=== PATIENT | male | born 1955 | race Caucasian/White ===

== ENCOUNTER 2018-06-09 06:33 | Day surgery (SDC) | payer BC ==
[2018-06-07 09:24] VITALS: BMI 36.6
[~2018-06-09 06:33] MED LIST: LACTATED RINGERS 1,000 ML IV SCH
[2018-06-09 06:57] VITALS: TEMP 98
[2018-06-09 07:04] LABS: Glucose,Whole Blood 155 mg/dL (75-99)
[2018-06-09] MEDS ORDERED: LIDOCAINE 1% INJ 10MG/ML (20 ML MDV) ONE (07:42)
[2018-06-09] MEDS ORDERED: PROPOFOL 10 MG/ML 20 ML VIAL IV ONE (07:42)
--- NOTE | 2018-06-09 07:48 | P.GSHP ---
History of Present Illness H&P Date: 06/09/18 Chief Complaint: Screen colonoscopy This is a 60-year-old male referred from Dr. Larson. Patient presents today for screening colonoscopy. His last colonoscopy over 10 years ago. Past Medical History Past Medical History: Cancer, Diabetes Mellitus, Hyperlipidemia, Hypertension Additional Past Medical History / Comment(s): CLL-CHRONIC LYMPHOCYTIC LEUKEMIA History of Any Multi-Drug Resistant Organisms: None Reported Past Surgical History: No Surgical Hx Reported Additional Past Surgical History / Comment(s): COLONOSCOPY Past Anesthesia/Blood Transfusion Reactions: No Reported Reaction Smoking Status: Never smoker - Past Family History Father Family Medical History: Cancer Medications and Allergies Home Medications Medication Instructions Recorded Confirmed Type Simvastatin [Zocor] 20 mg PO HS 07/27/14 06/09/18 History metFORMIN HCL [metFORMIN HCL ER] 500 mg PO TID 07/27/14 06/09/18 History Amoxicillin 500 mg PO TID 06/07/18 06/09/18 History Aspirin EC [Ecotrin Low Dose] 81 mg PO DAILY 06/07/18 06/09/18 History Multivitamin [Men's Multi-Vitamin] 1 each PO DAILY 06/07/18 06/09/18 History amLODIPine BESYLATE/BENAZEPRIL 1 tab PO DAILY 06/07/18 06/09/18 History [amLODIPine BESYLATE/BENAZEPRIL 5-20 mg] Allergies Allergy/AdvReac Type Severity Reaction Status Date / Time No Known Allergies Allergy Verified 06/07/18 09:17 Surgical - Exam Vital Signs Temp Pulse Resp BP Pulse Ox 98.0 F 66 20 157/80 99 06/09/18 06:55 06/09/18 06:55 06/09/18 06:55 06/09/18 06:55 06/09/18 06:55 - General well developed, no distress - Eyes PERRL - ENT normal pinna - Neck no masses - Respiratory normal expansion - Cardiovascular Rhythm: regular - Abdomen Abdomen: soft, non tender Results - Labs Abnormal Lab Results - Last 24 Hours (Table) 06/09/18 Range/Units 07:00 POC Glucose (mg/dL) 155 H (75-99) mg/dL Assessment and Plan Assessment: We'll perform screening colonoscopy.
--- NOTE | 2018-06-09 08:10 | P.OP ---
Date of Procedure: 06/09/18 Preoperative Diagnosis: Screening colonoscopy Postoperative Diagnosis: Diverticulosis Procedure(s) Performed: Colonoscopy Anesthesia: MAC Surgeon: Leonel Jackson Pathology: none sent Condition: stable Disposition: PACU Description of Procedure: Patient's placed on the endoscopy table in the lateral position. He received IV sedation. Digital rectal exam was performed which revealed no abnormalities. The flexible colonoscope was then placed patient anus passed throughout the entire colon. The ileocecal valve was visualized. Cecum, ascending and transverse colon appeared normal. In the descending; there is mild diverticular changes. Scope was then brought back the rectum and this appeared normal. Scope was withdrawn for patient.
[2018-06-09 08:20] VITALS: BP 144/76; PULSE 54; RESP 16
== END 2018-06-09 08:36 | disposition home or self-care (01) ==
LOC: ORWHC2ENDO 06:33
PROVIDERS: ATTEND Surgery
DX: Z12.11 Encounter for screening for malignant neoplasm of colon (principal); K57.30 Diverticulosis of large intestine without perforation or abscess without bleeding; I10 Essential (primary) hypertension; E78.5 Hyperlipidemia, unspecified; E11.9 Type 2 diabetes mellitus without complications; Z79.84 Long term (current) use of oral hypoglycemic drugs; Z85.6 Personal history of leukemia; Z79.2 Long term (current) use of antibiotics; Z79.82 Long term (current) use of aspirin; Z79.899 Other long term (current) drug therapy
CPT/HCPCS: J2001; J2704; G0121; 45378

== ENCOUNTER → 2020-02-13 | Outpatient (CLI) | payer BC ==
[2020-02-13 23:31] LABS: African American GFR (CKD) 109.4 (60.0-200.0); Albumin 4.4 g/dL (3.80-4.90); Albumin/Globulin Ratio 1.76 (1.60-3.17); Anion Gap 13.7 mmol/L (4.00-12.00); BUN/Creat Ratio 23.75 Ratio (12.00-20.00); Calcium 9.4 mg/dL (8.7-10.3); Carbon Dioxide 24.3 mmol/L (21.6-31.8); Chol/HDL Ratio 3.04; Globulin 2.5 g/dL (1.6-3.3); LDL Cholesterol,Calculated 83.4 mg/dL (0.0-131.0); Non-African American GFR(CKD) 94.4 (60.0-200.0); Potassium 3.9 mmol/L (3.5-5.5); Total Bilirubin 0.7 mg/dL (0.3-1.2); Total Protein 6.9 g/dL (6.2-8.2); VLDL Calculation 10.6 mg/dL (5.00-40.00)
[2020-02-14 01:13] LABS: Hemoglobin A1C 7.1 % (4.0-6.0)
== END | disposition home or self-care (01) ==
LOC: LABWHC1 14:49
PROVIDERS: ATTEND Internal Medicine Endocrinology, Diabetes & Metabolism
DX: E11.65 Type 2 diabetes mellitus with hyperglycemia (principal)
CPT/HCPCS: 36415; 80053; 80061; 83036; 84443

== ENCOUNTER → 2020-07-24 | Outpatient (CLI) | payer BC ==
[2020-07-24 23:45] LABS: Hemoglobin A1C 5.7 % (4.0-6.0)
[2020-07-25 00:35] LABS: African American GFR (CKD) 104.2 (60.0-200.0); Albumin 4.5 g/dL (3.80-4.90); Albumin/Globulin Ratio 1.96 (1.60-3.17); Anion Gap 11.6 mmol/L (4.00-12.00); BUN/Creat Ratio 24.44 Ratio (12.00-20.00); Calcium 9.8 mg/dL (8.7-10.3); Carbon Dioxide 23.4 mmol/L (21.6-31.8); Chol/HDL Ratio 3.06; Globulin 2.3 g/dL (1.6-3.3); Non-African American GFR(CKD) 89.9 (60.0-200.0); Potassium 4.5 mmol/L (3.5-5.5); Total Protein 6.8 g/dL (6.2-8.2)
[2020-07-25 01:15] LABS: Microalbumin Creatinine Ratio <30 mg/g Creat (0-30)
== END | disposition home or self-care (01) ==
LOC: LABWHC1 14:52
PROVIDERS: ATTEND Internal Medicine Endocrinology, Diabetes & Metabolism
DX: E78.2 Mixed hyperlipidemia (principal); E11.65 Type 2 diabetes mellitus with hyperglycemia
CPT/HCPCS: 36415; 80053; 80061; 82043; 82570; 83036; 84443

== ENCOUNTER 2020-10-26 08:25 | Emergency (ER) | payer BC ==
[2020-10-26 08:32] VITALS: BP 145/84; PULSE 86; RESP 16; TEMP 98
[2020-10-26] MEDS ORDERED: PROPARACAINE 0.5% OPHTH DROPS 15 ML BTL BOTH EYES STA (08:45)
[2020-10-26] MEDS ORDERED: FLUORESCEIN STRIPS 1 MG STRIP BOTH EYES ONE (09:20)
[2020-10-26] MEDS ORDERED: AMOXIC-POT CLAV 875MG STARTER PACK 2 TAB BTL PO STA (09:42)
--- NOTE | 2020-10-26 09:42 | ED ---
General Adult HPI - General Chief complaint: Eye Problems Stated complaint: Eye Swelling Time Seen by Provider: 10/26/20 08:33 Source: patient, RN notes reviewed Mode of arrival: ambulatory Limitations: no limitations - History of Present Illness Initial comments: 65-year-old male presents to the emergency department for bilateral eye swelling. Patient states this started 2 days ago. States they are somewhat itchy as well. He denies any visual changes. Denies any purulent or serous drainage from the eyes. Denies fevers or chills. Denies headaches. Denies congestion or runny nose. Patient does not take lisinopril. He does not have any swelling of the lips tongue or throat. No shortness of breath. He did take Benadryl once over did not seem to help much. Patient has no other complaints at this time including shortness of breath, chest pain, abdominal pain, nausea or vomiting, headache, or visual changes. - Related Data Home Medications Medication Instructions Recorded Confirmed Simvastatin [Zocor] 20 mg PO HS 07/27/14 06/09/18 metFORMIN HCL [metFORMIN HCL ER] 500 mg PO TID 07/27/14 06/09/18 Amoxicillin 500 mg PO TID 06/07/18 06/09/18 Aspirin EC [Ecotrin Low Dose] 81 mg PO DAILY 06/07/18 06/09/18 Multivitamin [Men's Multi-Vitamin] 1 each PO DAILY 06/07/18 06/09/18 amLODIPine BESYLATE/BENAZEPRIL 1 tab PO DAILY 06/07/18 06/09/18 [amLODIPine BESYLATE/BENAZEPRIL 5-20 mg] Previous Rx's Medication Instructions Recorded Amoxicillin/Potassium Clav 1 tab PO Q12HR #20 tab 10/26/20 [Augmentin 875-125 Tablet] Loratadine [Claritin] 10 mg PO DAILY #20 tab 10/26/20 Olopatadine HCl [Pataday] 1 drop BOTH EYES DAILY 5 Days #5 ml 10/26/20 Allergies Allergy/AdvReac Type Severity Reaction Status Date / Time No Known Allergies Allergy Verified 10/26/20 08:27 Review of Systems ROS Statement: Those systems with pertinent positive or pertinent negative responses have been documented in the HPI. ROS Other: All systems not noted in ROS Statement are negative. Past Medical History Past Medical History: Cancer, Diabetes Mellitus, Hyperlipidemia, Hypertension Additional Past Medical History / Comment(s): CLL-CHRONIC LYMPHOCYTIC LEUKEMIA History of Any Multi-Drug Resistant Organisms: None Reported Past Surgical History: No Surgical Hx Reported Additional Past Surgical History / Comment(s): COLONOSCOPY Past Anesthesia/Blood Transfusion Reactions: No Reported Reaction Past Psychological History: No Psychological Hx Reported Smoking Status: Never smoker Past Alcohol Use History: Occasional Past Drug Use History: None Reported - Past Family History Father Family Medical History: Cancer General Exam Limitations: no limitations General appearance: alert, in no apparent distress Head exam: Present: atraumatic, normocephalic, normal inspection Eye exam: Present: normal appearance, PERRL, EOMI (No pain with extraocular motion), conjunctival injection (Minimal conjunctival injection), periorbital swelling (Patient has minimal nonindurated bilateral periorbital edema with minimal erythema/). Absent: scleral icterus, periorbital tenderness ENT exam: Present: normal exam, mucous membranes moist Neck exam: Present: normal inspection, full ROM. Absent: tenderness, meningismus, lymphadenopathy Respiratory exam: Present: normal lung sounds bilaterally. Absent: respiratory distress, wheezes, rales, rhonchi, stridor Cardiovascular Exam: Present: regular rate, normal rhythm, normal heart sounds. Absent: systolic murmur, diastolic murmur, rubs, gallop, clicks GI/Abdominal exam: Present: soft, normal bowel sounds. Absent: distended, tenderness, guarding, rebound, rigid Course Vital Signs 10/26/20 08:29 Temperature 98.0 F Pulse Rate 86 Respiratory 16 Rate Blood Pressure 145/84 O2 Sat by Pulse 96 Oximetry Medical Decision Making - Medical Decision Making Vitals are stable. Patient is well-appearing. He does have minimal bilateral periorbital edema with erythema, non-indurated, not warm to touch. No swelling of the lips tongue or throat. Minimal conjunctival erythema. No headache, fever. I did stain patient's eyes with fluorescein and visualized with the Wood's lamp. There is no evidence of abrasion or foreign body. No dendritic lesions. Patient's symptoms are consistent with ALLERGIC conjunctivitis. I did start patient on Pataday drops as well as Claritin. However I will also give patient Augmentin to cover for a preseptal cellulitis. No evidence for an orbital cellulitis given no fever, no pain with extraocular motions. Patient will follow-up with his eye doctor on Wednesday. He will return here for any worsening symptoms. Disposition Clinical Impression: Periorbital edema Disposition: HOME SELF-CARE Condition: Good Instructions (If sedation given, give patient instructions): Periorbital Cellul itis in Adults (ED) Additional Instructions: Please take antibiotic as directed to cover for any possible infectious cause. However as discussed by do think this is more of an ALLERGIC cause. Please take Claritin or Benadryl as directed. Use antihistamine eyedrops. Follow-up with your eye doctor on Wednesday if symptoms are not improving. Otherwise return to the emergency room for any worsening symptoms or visual changes. Prescriptions: Amoxicillin/Potassium Clav [Augmentin 875-125 Tablet] 1 tab PO Q12HR #20 tab Loratadine [Claritin] 10 mg PO DAILY #20 tab Olopatadine HCl [Pataday] 1 drop BOTH EYES DAILY 5 Days #5 ml Is patient prescribed a controlled substance at d/c from ED?: No Referrals: Erik Larson DO [Primary Care Provider] - 1-2 days Time of Disposition: 09:37
== END 2020-10-26 09:54 | disposition home or self-care (01) ==
LOC: EC 08:25
DX: H05.223 Edema of bilateral orbit (principal); E11.9 Type 2 diabetes mellitus without complications; I10 Essential (primary) hypertension; E78.5 Hyperlipidemia, unspecified; Z79.82 Long term (current) use of aspirin; Z79.84 Long term (current) use of oral hypoglycemic drugs; Z79.899 Other long term (current) drug therapy; Z85.6 Personal history of leukemia
CPT/HCPCS: 99283

== ENCOUNTER 2020-10-28 14:46 | Emergency (ER) | payer BC ==
[2020-10-28 14:57] VITALS: BP 125/77; PULSE 82; RESP 18; TEMP 97.8
[2020-10-28] MEDS ORDERED: FAMOTIDINE 20 MG TAB PO STA (15:15)
--- NOTE | 2020-10-28 15:27 | ED ---
General Adult HPI - General Chief complaint: Allergic Reaction Stated complaint: Allergic Reaction- Rash Time Seen by Provider: 10/28/20 15:03 Source: patient, RN notes reviewed Mode of arrival: ambulatory Limitations: no limitations - History of Present Illness Initial comments: 65-year-old male with a past medical history of CLL, diabetes mellitus, hy perlipidemia, hypertension presents to the emergency room for a chief complaint of rash. Patient reports that he was started on Augmentin a few days ago for possible infection around his eyes. Patient reports he has been taking Claritin and Augmentin and it has improved. However patient developed a rash today. States it is diffusely over his arms and abdomen. He denies any shortness of breath or swelling of the lips tongue or throat.Patient has no other complaints at this time including shortness of breath, chest pain, abdominal pain, nausea or vomiting, headache, or visual changes. - Related Data Home Medications Medication Instructions Recorded Confirmed Simvastatin [Zocor] 20 mg PO HS 07/27/14 06/09/18 metFORMIN HCL [metFORMIN HCL ER] 500 mg PO TID 07/27/14 06/09/18 Amoxicillin 500 mg PO TID 06/07/18 06/09/18 Aspirin EC [Ecotrin Low Dose] 81 mg PO DAILY 06/07/18 06/09/18 Multivitamin [Men's Multi-Vitamin] 1 each PO DAILY 06/07/18 06/09/18 amLODIPine BESYLATE/BENAZEPRIL 1 tab PO DAILY 06/07/18 06/09/18 [amLODIPine BESYLATE/BENAZEPRIL 5-20 mg] Previous Rx's Medication Instructions Recorded Amoxicillin/Potassium Clav 1 tab PO Q12HR #20 tab 10/26/20 [Augmentin 875-125 Tablet] Loratadine [Claritin] 10 mg PO DAILY #20 tab 10/26/20 Olopatadine HCl [Pataday] 1 drop BOTH EYES DAILY 5 Days #5 ml 10/26/20 Famotidine [Pepcid] 20 mg PO DAILY #15 tablet 10/28/20 hydrOXYzine HCL [Atarax] 25 mg PO QID #20 tab 10/28/20 Allergies Allergy/AdvReac Type Severity Reaction Status Date / Time amoxicillin [From Augmentin] Allergy Rash/Hives Verified 10/28/20 14:56 clavulanic acid Allergy Rash/Hives Verified 10/28/20 14:56 [From Augmentin] Review of Systems ROS Statement: Those systems with pertinent positive or pertinent negative responses have been documented in the HPI. ROS Other: All systems not noted in ROS Statement are negative. Past Medical History Past Medical History: Cancer, Diabetes Mellitus, Hyperlipidemia, Hypertension Additional Past Medical History / Comment(s): CLL-CHRONIC LYMPHOCYTIC LEUKEMIA History of Any Multi-Drug Resistant Organisms: None Reported Past Surgical History: No Surgical Hx Reported Additional Past Surgical History / Comment(s): COLONOSCOPY Past Anesthesia/Blood Transfusion Reactions: No Reported Reaction Past Psychological History: No Psychological Hx Reported Smoking Status: Never smoker Past Alcohol Use History: Occasional Past Drug Use History: None Reported - Past Family History Father Family Medical History: Cancer General Exam Limitations: no limitations General appearance: alert, in no apparent distress Head exam: Present: atraumatic, normocephalic, normal inspection Eye exam: Present: normal appearance, PERRL, EOMI. Absent: scleral icterus, conjunctival injection, periorbital swelling ENT exam: Present: normal exam, mucous membranes moist Neck exam: Present: normal inspection. Absent: tenderness, meningismus, lymphadenopathy Respiratory exam: Present: normal lung sounds bilaterally. Absent: respiratory distress, wheezes, rales, rhonchi, stridor Cardiovascular Exam: Present: regular rate, normal rhythm, normal heart sounds. Absent: systolic murmur, diastolic murmur, rubs, gallop, clicks GI/Abdominal exam: Present: soft, normal bowel sounds. Absent: distended, tenderness, guarding, rebound, rigid Skin exam: Present: rash (Patient has erythematous raised rash on extremities and torso. Negative Nikolsky sign. Consistent with hives.) Course Vital Signs 10/28/20 14:52 Temperature 97.8 F Pulse Rate 82 Respiratory 18 Rate Blood Pressure 125/77 O2 Sat by Pulse 98 Oximetry Medical Decision Making - Medical Decision Making Patient presents with allergic rash presumably to augmentin. This was discontinued. Patient was evaluated by Dr saenz, who is in agreement that erythema and edema of eyelids is secondary to ALLERGIC nature and not consistent with preseptal cellulitis. Patient was not started on any additional antibiotics. He reports his symptoms have been improving. Patient will be started on Atarax for antihistamine and itching relief as well as Pepcid. He does not want steroids because he was told by his oncologist that he should not have these with his CLL. Disposition Clinical Impression: Rash, Allergic reaction Disposition: HOME SELF-CARE Condition: Good Instructions (If sedation given, give patient instructions): General Allergic Reaction (ED) Additional Instructions: Please stop the Augmentin. Please take Pepcid as directed. Take Atarax every 6 hours. You can take this instead of the Benadryl. Follow-up with your doctor in one to 2 days. Return to the emergency room for any worsening symptoms. Prescriptions: hydrOXYzine HCL [Atarax] 25 mg PO QID #20 tab Famotidine [Pepcid] 20 mg PO DAILY #15 tablet Is patient prescribed a controlled substance at d/c from ED?: No Referrals: Erik Larson DO [Primary Care Provider] - 1-2 days Time of Disposition: 15:48
== END 2020-10-28 16:07 | disposition home or self-care (01) ==
LOC: EC 14:46
DX: R21 Rash and other nonspecific skin eruption (principal); T36.0X5A Adverse effect of penicillins, initial encounter; T36.1X5A Adverse effect of cephalosporins and other beta-lactam antibiotics, initial encounter; E11.9 Type 2 diabetes mellitus without complications; I10 Essential (primary) hypertension; E78.5 Hyperlipidemia, unspecified; Z79.84 Long term (current) use of oral hypoglycemic drugs; Z79.899 Other long term (current) drug therapy; Z85.6 Personal history of leukemia; Z88.0 Allergy status to penicillin; Z88.1 Allergy status to other antibiotic agents
CPT/HCPCS: 99282

== ENCOUNTER → 2022-04-15 | Outpatient (CLI) | payer BC ==
--- NOTE | 2022-04-15 14:21 | CA ---
Exercise Stress Test Report Name: uHdson Coffey Exam Date: 04/15/2022 11:15 Exam Location: [facility] Ht (in): 70 Wt (lb): 220 BSA: 2.17 Ordering Phys: Erik Beasley DO Referring Phys: BEASLEY Technologist: Moses Aguilar Age: 66 Gender: M : 1955 Procedure CPT: Indications: R55 Syncope ICD-10 Codes: Patient History: HTN, DIABETIC, ELEVATED CHOLESTEROL, FAMILY HX OF HEART DISEASE, Medications: METFORMIN,,,,,, AMLODIPINE,,,,,, SIMVASTATIN,,,,,, ASA 81 mg,,,,,, FARXIGA,,,,, Meds past 24 hrs: Pretest Chest Pain: STRESS TEST Mayank Protocol Exercise Duration (min:sec): 11:[address] Depressions (mm): Angina Score: Lord Score: Resting HR (bpm): 77 Peak HR (bpm): 144 Resting BP (mmHg): 136 / 85 Peak BP (mmHg): 204 / 66 MPHR: 154 Target HR: 131 % MPHR: 94 METS: 12.1 Total Dose: Peak Dose: Atropine: Double Product: 07454 BP Response: Stress Termination: Stress Symptoms: Stress Summary: ECG ANALYSIS Resting ECG: Stress ECG: CONCLUSIONS Excellent exercise tolerance Normal EKG and response to exercise Dr. Josesito Kirk MD (Electronically Signed) Final Date: 15 Apr 2022 14:19
--- NOTE | 2022-04-15 17:11 | US ---
EXAMINATION TYPE: US carotid duplex BILAT DATE OF EXAM: 04/15/2022 COMPARISON: NONE CLINICAL HISTORY: R55 SYNCOPE. EXAM MEASUREMENTS: RIGHT: Peak Systolic Velocity (PSV) cm/sec ----- Right CCA: 85.5 ----- Right ICA: 92.5 ----- Right ECA: 130.0 ICA/CCA ratio: 1.1 RIGHT: End Diastole cm/sec ----- Right CCA: 18.5 ----- Right ICA: 29.6 ----- Right ECA: 19.8 LEFT: Peak Systolic Velocity (PSV) cm/sec ----- Left CCA: 91.2 ----- Left ICA: 80.7 ----- Left ECA: 113.0 ICA/CCA ratio: 0.9 LEFT: End Diastole cm/sec ----- Left CCA: 23.8 ----- Left ICA: 30.0 ----- Left ECA: 16.0 VERTEBRALS (direction of flow): Right Vertebral: Antegrade Left Vertebral: Antegrade Rhythm: Normal No significant stenosis mild atheromatous plaquing is present. IMPRESSION: No significant flow-limiting stenosis by velocity measurement. Criteria for Assigning % of Stenosis / Diameter reduction (Estimation based on the indirect measurements of the internal carotid artery velocities (ICA PSV). 1. Normal (no stenosis)=ICA PSV < 125 cm/s: ratio < 2.0: ICA EDV<40 cm/s. 2. Less than 50% stenosis=ICA PSV < 125 cm/s: ratio < 2.0: ICA EDV<40 cm/s. 3. 50 to 69% stenosis=ICA PSV of 125 to 230 cm/s: ration 2.0 ? 4.0: ICA EDV 40-100 cm/s. 4. Greater than 70% stenosis to near occlusion= ICA PSV > 230 cm/s: ratio > 4.0: ICA EDV > 100 cm/s. 5. Near occlusion= ICA PSV velocities may be low or undetectable: variable ratio and ICA EDV. 6. Total occlusion=unable to detect flow.
== END | disposition home or self-care (01) ==
LOC: RADUSWWP 09:37
PROVIDERS: ATTEND Family Medicine
DX: R55 Syncope and collapse (principal)
CPT/HCPCS: 93017; 93880

== ENCOUNTER → 2023-06-03 | Outpatient (CLI) | payer MEDICARE ==
[2023-06-03 12:51] LABS: Appearance,Urine Clear (Clear); Bilirubin,Urine Negative (Negative); Blood,Urine Negative (Negative); Color,Urine Yellow; Glucose,Urine (UA) 4+ (Negative); Ketones,Urine Trace (Negative); Leukocyte Esterase,Urine Negative (Negative); Nitrite,Urine Negative (Negative); PH, Urine 5.5 (5.0-8.0); Protein,Urine Negative (Negative); Specific Gravity,Urine 1.033 (1.001-1.035); Urobilinogen,Urine <2.0 mg/dL (<2.0)
[2023-06-03 16:32] LABS: BUN/Creat Ratio 36.12 Ratio (12.00-20.00); Blood Urea Nitrogen 28.9 mg/dL (9.0-27.0); Chloride 105 mmol/L (96-109); Glucose 128 mg/dL (70-110); Potassium 4.5 mmol/L (3.5-5.5); Sodium 140 mmol/L (135-145)
[2023-06-03 16:33] LABS: Calcium 9.8 mg/dL (8.7-10.3); Carbon Dioxide 25.3 mmol/L (21.6-31.8)
[2023-06-03 17:30] LABS: Basophils # (M) 0 X 10*3/uL (0.00-0.10); Eosinophils # (M) 0.82 X 10*3/uL (0.04-0.35); HCT 47.6 % (39.6-50.0); HGB 15.5 d/dL (12.0-15.0); Lymphocytes # (M) 32.51 X 10*3/uL (0.90-5.00); MCHC 32.6 d/dL (32.0-37.0); MCV 95.2 FL (80.0-97.0); Mean Platelet Volume 12.3 FL (9.5-12.2); Monocytes # (M) 1.65 X 10*3/uL (0.20-1.00); NRBC Per 100 WBC 0 X 10*3/uL (0.00-0.01); Neutrophils % (M) 15 %; Platelet Count 288 X 10*3/uL (140-440); RBC Morphology Normal (Normal); Smudge Cells Present; WBC 41.15 X 10*3/uL (4.50-10.00)
== END | disposition home or self-care (01) ==
LOC: LABPAT 11:22
PROVIDERS: ATTEND Urology
DX: Z01.812 Encounter for preprocedural laboratory examination (principal); N53.9 Unspecified male sexual dysfunction
CPT/HCPCS: 80048; 81003; 85025; 87086

== ENCOUNTER 2023-06-10 05:59 | Day surgery (SDC) | payer MEDICARE ==
[2023-06-04 13:47] VITALS: BMI 33.0
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
[~2023-06-10 05:59] MED LIST changes: +GENTAMICIN 130 MG in SODIUM CHLORIDE 0.9% 100 ML IVPB PRN; -LACTATED RINGERS 1,000 ML IV SCH; +Pre Op ABX Message 1 EACH MISC MISCELLANE ONE
[2023-06-10] MEDS ORDERED: ONDANSETRON 4 MG/2 ML VIAL IVP ONE (06:02)
[2023-06-10] MEDS ORDERED: LACTATED RINGERS 1,000 ML IV SCH (06:02)
[2023-06-10] MEDS ORDERED: HYDROmorphone 0.5 MG/0.5 ML SYRINGE IVP PRN (06:02)
[2023-06-10] MEDS ORDERED: DEXAMETHASONE SOD PHOSPHATE 4 MG/ML 1 ML VIAL IV ONE (06:02)
[2023-06-10 07:06] LABS: Glucose,Whole Blood 152 mg/dL (70-110)
[2023-06-10] MEDS ORDERED: NEOSTIGMINE 1 MG/ML 10 ML VIAL ONE (07:47)
[2023-06-10] MEDS ORDERED: PROPOFOL 10 MG/ML 20 ML VIAL IV ONE (07:47)
[2023-06-10] MEDS ORDERED: GLYCOPYRROLATE 0.2 MG/ML 2 ML VIAL ONE (07:47)
[2023-06-10] MEDS ORDERED: LIDOCAINE 2% INJ 20 MG/ML (2 ML VIAL) ONE (07:47)
[2023-06-10] MEDS ORDERED: fentaNYL (PF) 50 MCG/ML 2 ML AMP ONE (07:47)
[2023-06-10] MEDS ORDERED: HYDROmorphone (PF) 1 MG/ML ONE (07:47)
[2023-06-10] MEDS ORDERED: MIDAZOLAM 2 MG/2 ML VIAL ONE (07:47)
[2023-06-10] MEDS ORDERED: SUCCINYLCHOLINE CHLORIDE 200 MG/10 ML VIAL IV ONE (07:47)
[2023-06-10] MEDS ORDERED: ROCURONIUM 10 MG/ML (5 ML VIAL) IV ONE (07:47)
[2023-06-10] MEDS ORDERED: KETOROLAC 30 MG/ML 1 ML VIAL ONE (07:47)
[2023-06-10] MEDS ORDERED: GENTAMICIN 80 MG in SODIUM CHLORIDE 0.9% 200 ML IRRIGATION ONE (08:12)
[2023-06-10] MEDS ORDERED: LACTATED RINGERS 1,000 ML IV ONE (09:04)
--- NOTE | 2023-06-10 09:17 | P.OP ---
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 He has failed conservative management. He comes for insertion of inflatable penile prosthesis Description of Procedure: Patient brought to the operative suite. Given a general anesthetic. Prepped and draped sterilely. Midline infrapubic incision is made. The corporal cavernosa exposed bilaterally and cleaned off of connective tissue. Stay stitches using 3-0 PDS are placed in each corpora. Corporotomies were made bilaterally. I dissect proximally and distally with Metzenbaum scissors and then using Hegar dilators 9-13 bilaterally distally and proximally. The length of the corpora measures 19 cm While the implant, reservoir and pump or being prepped I then make an incision in the rectus fascia and develop the prevesical space for the reservoir. I then pass a right angle clamp to the external inguinal ring into the prevesical space then attached the tubing to the reservoir and pull it back out through the external ring. I placed the reservoir in the prevesical space and insufflated to 65 mL without tension. I closed the rectus fascia with running 0 PDS. The implant has been prepared. I then attached the Osito needle to the strings at the tips of the implant and place it in the Kita introducer. I Advance the needle distally through the tip of the penis bilaterally. I then seed each implant bilaterally and proximally and inflate it to make sure there is no buckling and there is none. I closed the corporotomies with 3-0 PDS. I then placed the pump in an anterior scrotal space. I connected the tubing from the pump to the reservoir using straight connects. I inflate and deflate the implant using the reservoir and it inflates nicely. I then irrigate thoroughly. I closed the subcutaneous tissue with 3-0 chromic the skin with 4-0 Vicryl. The patient's awake and returned recovery in good condition. Patellar procedure well. Blood loss is approximately 50 mL.
[2023-06-10 09:22] VITALS: TEMP 97.2
[2023-06-10 11:03] VITALS: BP 116/70; PULSE 61; RESP 18
== END 2023-06-10 11:49 | disposition home or self-care (01) ==
LOC: OR 05:59
PROVIDERS: ATTEND Urology
DX: N52.9 Male erectile dysfunction, unspecified (principal); E11.51 Type 2 diabetes mellitus with diabetic peripheral angiopathy without gangrene; I10 Essential (primary) hypertension; E78.5 Hyperlipidemia, unspecified; Z82.3 Family history of stroke; Z79.82 Long term (current) use of aspirin; Z79.84 Long term (current) use of oral hypoglycemic drugs; Z79.899 Other long term (current) drug therapy
CPT/HCPCS: 54410; C1813; J1580 ×2; J1100; J2405

== ENCOUNTER → 2025-01-25 | Outpatient (CLI) | payer MEDICARE ==
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
== END | disposition home or self-care (01) ==
LOC: RADXRMAIN 10:14
PROVIDERS: ATTEND Family Medicine
DX: M51.360 Other intervertebral disc degeneration, lumbar region with discogenic back pain only (principal); M47.816 Spondylosis without myelopathy or radiculopathy, lumbar region; W11.XXXA Fall on and from ladder, initial encounter
CPT/HCPCS: 72100